=== PATIENT | male | born 1990 | race Caucasian/White ===

== ENCOUNTER 2017-03-21 10:00 | Inpatient (IN) | payer OTHER ==
--- NOTE | ~2017-03-21 | HP ---
Unit #: [id number] #: [id number] Patient: QUINTEN PATINO [id number] [place] [address] [id number] MR#: [id number] NAME: QUINTEN PATINO ROOM: P209 Age: 27 Sex: M Admission Date: 03/21/2017 : 1990 Attending Physician: Jose A Ryan M.D. Admitting Physician: Jose A Ryan M.D. Primary Care Physician: Primary Care Physician No HISTORY AND PHYSICAL HISTORY OF PRESENT ILLNESS The patient is a 27-year-old male admitted to [address] [place] [address] on 03/21/2017 to withdrawal from alcohol. PAST MEDICAL HISTORY 1. Alcohol abuse 2. Nicotine dependence PAST SURGICAL HISTORY The patient denies. SOCIAL He is unemployed and lives with his girlfriend and her daughter. He smokes one pack of cigarettes daily, drinks three to five fifths of vodka per day. Smokes two to three joints per day. FAMILY MEDICAL HISTORY Noncontributory. ALLERGIES No known drug allergies. CURRENT MEDICATION The patient is not on any home medications. REVIEW OF SYSTEMS CONSTITUTIONAL: No fever or chills. HEENT: Denies any sore throat, ear pain or runny nose. CARDIOVASCULAR: Denies chest pain, irregular heart rhythm or palpitations. CHEST: Denies shortness of breath or cough. No hemoptysis. GASTROINTESTINAL: Denies nausea, vomiting, diarrhea or chronic constipation. ENDOCRINE: Denies history of increased thirst or urination. No recent significant weight loss or gain. GENITOURINARY: Denies dysuria, frequency, or hematuria. SKIN: Denies any rashes. HEMATOLOGIC: Denies history of increased bleeding or bruising. MUSCULOSKELETAL: Denies any hot, swollen joints. No generalized muscle pain. NEUROLOGIC: Denies problems with vision or speech. No frequent, severe headaches. No numbness, tingling or weakness in any extremities. Denies loss of bladder or bowel control. PHYSICAL EXAM Unit #: [id number] #: [id number] Patient: QUINTEN PATINO GENERAL: He is awake, alert and oriented in no acute distress. VITAL SIGNS: Temperature 97.0, heart rate 103, respiration 16, blood pressure 152/98. SKIN: Warm and dry without rash or lesion. HEENT: Normocephalic. TMs not viewed. Oral and nasal passages clear. Conjunctivae clear. PERRLA. EOMs intact. NECK: Supple without lymphadenopathy or thyromegaly. HEART: Regular rate and rhythm without murmur. LUNGS: Clear. ABDOMEN: Soft, nontender. : Not done. EXTREMITIES: No evidence of cyanosis, clubbing or edema. Moves all without focal deficit. NEUROLOGICAL: Grossly within normal limits. Cranial Nerves: II: Visual jones are intact. III, IV AND : Extraocular movements are intact. Pupils are equal, round and reactive to light. V: Facial sensation is grossly normal. VII: Facial movements and expression are normal. VIII: Auditory acuity grossly intact. IX, X: Uvula is midline. Phonation is normal. XI: Patient shrugs shoulders and turns head normally. XII: Tongue protrudes in the midline. Sensory and Motor Function: Sensory and motor sensation is grossly normal. Motor: moves all extremities well. IMPRESSION 1. Psychiatric admission. 2. Polysubstance abuse. 3. Nicotine dependence. RECOMMENDATIONS Psychiatric per psychiatrist. MEDICAL: No contraindication to participate in facility activities. MEDICAL PROGNOSIS Good. MEDICAL CONDITION Stable. Dictated by... Raul Sinclair/steven TD: 03/23/2017 03:30 JOB #: [id number] Unit #: [id number] #: [id number] Patient: QUINTEN PATINO HISTORY AND PHYSICAL Page 1 of 1 X SHA AKBAR APRN X HISTORY AND PHYSICAL
--- NOTE | ~2017-03-21 | DS ---
Unit #: [id number] #: [id number] Patient: QUINTEN PATINO [id number] [facility] [address] [place] [address] [id number] MR#: [id number] NAME: QUINTEN PATINO ROOM: [facility] Age: 27 Sex: M Admission Date: 03/21/2017 : 1990 Discharge Date: 03/22/2017 Attending Physician: Jose A Ryan M.D. Primary Care Physician: Primary Care Physician No DISCHARGE SUMMARY REASON FOR ADMISSION Alcohol detox. DIAGNOSTIC STUDIES LABORATORY RESULTS: None. HOSPITAL COURSE The patient was admitted to inpatient unit on 03/21/2017 and subsequently discharged on 03/22/2017. The patient requested for discharge. The patient is not suicidal, not homicidal. The patient is stable, not having any withdrawal symptom at this time. Subsequently, the patient was discharged with a plan to follow up in outpatient program. DISCHARGE MEDICATIONS None. DISCHARGE DIAGNOSES Psychiatric: Alcohol use disorder, severe, F10.20; mood disorder, not otherwise specified, F32.9. Secondary diagnosis: Deferred. Medical diagnosis: None. DISCHARGE INSTRUCTIONS The patient to follow up in outpatient clinic as per director of social work. CONDITION ON DISCHARGE The patient was pleasant and cooperative. Denied any psychotic symptom or any suicidal ideation. PROGNOSIS Guarded. DIET AND ACTIVITY As tolerated. Dictated by... Jose A Ryan M.D. SZC/phi Unit #: [id number] #: [id number] Patient: QUINTEN PATINO TD: 03/22/2017 14:09 JOB #: [id number] DISCHARGE SUMMARY Page 1 of 1 X Jose A Ryan MD X DISCHARGE SUMMARY
--- NOTE | ~2017-03-21 | PA ---
Unit #: [id number] #: [id number] Patient: QUINTEN PATINO [id number] [facility] [address] [place] [address] [id number] I MR#: [id number] NAME: QUINTEN PATINO ROOM: P209 Age: 27 Sex: M Admission Date: 03/21/2017 : 1990 Date of Assessment: Attending Physician: Jose A Ryan M.D. Admitting Physician: Jose A Ryan M.D. Primary Care Physician: Primary Care Physician No PSYCHIATRIC ASSESSMENT INFORMANTS The patient reliability, fair informant and chart reliability, good. CHIEF COMPLAINT Alcohol abuse and withdrawal. HISTORY OF PRESENT ILLNESS Mr. Quinten Patino is a 27-year-old male, admitted with the above-mentioned complaint. The patient reports that he has been dealing with alcohol addiction for a long time. The patient . Lives with girlfriend. Reported drinking daily since age 16. The patient denied any suicidal or homicidal ideation. Denied any psychotic symptom. The patient needing help with detox. Reported withdrawal symptoms such as diaphoresis, depressed mood, headache, irritability, nervousness, poor appetite, poor concentration, restlessness, and tremors. The patient reported history of blackout. No history of any IV drug abuse. No history of HIV or hepatitis. The patient reported alcohol abuse, age 16; tobacco, age 13; marijuana, age 16; and amphetamine, age 27. PAST PSYCHIATRIC HISTORY Unremarkable for any history of any previous treatment. FAMILY HISTORY AND SOCIAL HISTORY The patient has a good support system. No history of any abuse. MEDICAL HISTORY Unremarkable for any chronic medical condition. Musculoskeletal; muscle strength and tone, no atrophy or abnormal movement. Gait normal. MEDICATION HISTORY None. ALLERGIES No known drug allergies. SUBSTANCE ABUSE HISTORY Please see above. REVIEW OF SYSTEMS HEENT: Eyes, clear. Ears, nose, mouth, and throat; clear. CARDIOVASCULAR: Unremarkable. RESPIRATORY: Unremarkable. GI: Unremarkable. Unit #: [id number] #: [id number] Patient: QUINTEN PATINO : Unremarkable. SKIN: Unremarkable. LYMPH NODE: Unremarkable. NEUROLOGIC: Unremarkable. ENDOCRINE: Unremarkable. HEMATOLOGIC: Unremarkable. ALLERGIC/IMMUNOLOGIC: Unremarkable. MUSCULOSKELETAL: Muscle strength and tone, no atrophy or abnormal movement. Gait normal. MENTAL STATUS EXAMINATION CONSTITUTIONAL: Measurement of vital signs; temperature 97.0, heart rate 103, respiratory rate 16, 100% oxygen saturation, and blood pressure 132/98. Height 5 feet 11 inches and weight 139 pounds. GENERAL APPEARANCE: The patient dressed casually. The patient did not show any facial deformity. MUSCULOSKELETAL: Please see above. PSYCHIATRIC EXAMINATION Description of speech; regular rate, normal volume, normal articulation, coherent, and spontaneous. Description of thought process, goal directed. Description of association, intact. Description of abnormal psychotic thinking; the patient denied any hallucination or delusions. Description of the patient's judgment: Concerning everyday activity, poor. Social situation, poor. Concerning psychiatric condition, poor. Complete mental status examination; oriented in time, place, and person. Recent and remote memory, fair. Attention span and concentration, fair. Language, able to name object and repeat phrases. Fund of knowledge, aware of current event and passive vocabulary intact. Mood and affect, sad and dysphoric. Insight and judgment, fair to poor. ASSETS AND LIABILITIES Assets, the patient is articulate and able to take care of his ADL. Liability, substance abuse. ADMITTING DIAGNOSES Psychiatric: Alcohol use disorder, severe, F10.20 and mood disorder, not otherwise specified, F32.9. Secondary diagnosis: Deferred. Medical diagnosis: None. Stressors: Psychosocial stressors. PSYCHIATRIC PLAN AND TREATMENT GOAL AND DISCHARGE PLAN 1. Advised to admit the patient on the inpatient unit. Provide safe, supportive, and structured environment. 2. Ordered labs; CBC, CMP, UA, and UDS. 3. Detox protocol and detox monitoring. 4. The patient to attend all the programing. If needed, consider further adjustment of medication. TREATMENT GOAL To attain euthymic mood, gain insight into his problem, and learn coping skills. Unit #: [id number] #: [id number] Patient: QUINTEN PATINO DISCHARGE PLAN Plan to stabilize the patient and consider followup in outpatient program. ESTIMATED LENGTH OF STAY 2 to 5 days. Dictated by... Jose A Ryan M.D. RONAN/phi TD: 03/22/2017 14:16 JOB #: [id number] PSYCHIATRIC ASSESSMENT Page 1 of 1 X Jose A Ryan MD PSYCHIATRIC ASSESSMENT
[~2017-03-21 10:00] MED LIST: NO MEDICATIONS
[2017-03-22 11:56] LABS: BASOPHIL# 0.1 X10e3 (0-0.3); BASOPHIL% 1.2 % (0-2.5); EOSINOPHIL# 0.1 X10e3 (0-0.7); EOSINOPHIL% 2.1 % (0.0-7.0); HEMATOCRIT 43.3 % (38.0-50.0); HEMOGLOBIN 14.5 gm/dL (13.0-16.0); LYMPHOCYTE# 1.3 X10e3 (1.0-3.5); LYMPHOCYTE% 23.6 % (17.0-45.0); MEAN CELL VOLUME 98.5 FL (83-96); MEAN CORPUSCULAR HGB CONC 33.5 g/dL (30-36); MEAN PLATELET VOLUME 7.3 FL (6.5-11.5); MONOCYTE# 0.6 X10e3 (0-1.0); MONOCYTE% 10.5 % (3.0-12.0); NEUTROPHIL# 3.5 X10e3 (1.5-7.1); NEUTROPHIL% 62.6 % (40-75); PLATELET COUNT 190 X10e3 (140-420); RED CELL DISTRIBUTION WIDTH 13.6 % (11.0-15.5); WHITE BLOOD COUNT 5.5 X10e3 (4.0-10.5)
[2017-03-22 12:02] LABS: DIFF IND NO
[2017-03-22 12:19] LABS: ALBUMIN SERUM 3.9 g/dL (3.5-5.0); BILIRUBIN,TOTAL 1.3 mg/dL (0.2-2.0); BUN/CREATININE RATIO 18.33; CALCIUM SERUM 9.5 mg/dL (8.4-10.2); CREATININE SERUM 0.6 mg/dL (0.6-1.4); GLOM FILT RATE Estimated 137.8 mL/min (>60); POTASSIUM 3.7 mmol/L (3.5-5.1); PROTEIN TOTAL SERUM 7.1 g/dL (6.0-8.3)
== END 2017-03-22 12:00 | disposition home or self-care (01) | DRG 897 ==
LOC: P2S 12:08
PROVIDERS: Psychiatry & Neurology Psychiatry
PROC: HZ2ZZZZ Detoxification Services for Substance Abuse Treatment (ICD-10-PCS; principal; 2017-03-21)
DX: F11.20 Opioid dependence, uncomplicated (principal); F32.9 Major depressive disorder, single episode, unspecified; F17.210 Nicotine dependence, cigarettes, uncomplicated; F19.10 Other psychoactive substance abuse, uncomplicated
CPT/HCPCS: 80053; 85025

== ENCOUNTER 2017-04-03 08:56 | Inpatient (IN) | payer OTHER ==
--- NOTE | ~2017-04-03 | PN ---
Unit #: [id number] #: [id number] Patient: QUINTEN PATINO [id number] [facility] [address] [place] [address] [id number] MR#: [id number] NAME: QUINTEN PATINO ROOM: [facility] Age: 27 Sex: M Admission Date: 04/03/2017 : 1990 Attending Physician: Jose A Ryan M.D. Admitting Physician: Jose A Ryan M.D. Primary Care Physician: Primary Care Physician Nettie LOPEZ PROGRESS NOTES DATE OF SERVICE: 04/05/2017 DISCUSSION Mr. Erazo is a 27-year-old male, seen on 04/05/2017. The patient interviewed, chart reviewed, and obtained information from nursing staff. The patient reports making progress, still having withdrawal symptoms, anxious, and nervous. The patient's vital signs; temperature 98.5, heart rate 69, and blood pressure 134/89. REVIEW OF SYSTEMS Complete review of systems unremarkable. MENTAL STATUS EXAMINATION General appearance, the patient dressed casually. Attention span and concentration, fair. Oriented in time, place, and person. Mood and affect, sad and dysphoric. Speech, monotone. Thought process, concrete. The patient denied any thoughts of harming self or others. Recent and remote memory, poor. Insight and judgment, poor. DIAGNOSIS Alcohol use disorder, severe. ASSESSMENT AND PLAN Advised to continue with current medication and therapeutic protocol. If needed, consider further adjustment of medication. Dictated by... Lianet Cheung/phi TD: 04/05/2017 14:06 JOB #: [id number] Unit #: [id number] #: [id number] Patient: QUINTEN PATINO PEANARCISA PROGRESS NOTES Page 1 of 1 X Jose A Ryan MD PROGRESS NOTE
--- NOTE | ~2017-04-03 | DS ---
Unit #: [id number] #: [id number] Patient: QUINTEN PATINO [id number] [facility] [address] [place] [address] [id number] MR#: [id number] NAME: QUINTEN PATINO ROOM: [facility] Age: 27 Sex: M Admission Date: 04/03/2017 : 1990 Discharge Date: 04/06/2017 Attending Physician: Jose A Ryan M.D. Primary Care Physician: Primary Care Physician No DISCHARGE SUMMARY REASON FOR ADMISSION Alcohol withdrawal. DIAGNOSTIC STUDIES LABORATORY RESULTS: Remarkable for sodium 132, potassium 3.1. AST 86, ALT 129. HOSPITAL COURSE The patient was admitted to inpatient unit on 04/03/2017 and discharged on 04/06/2017. The patient was treated with detox protocol, detox monitoring, also followed by the medical doctor for abnormal labs. The patient was treated with chemical dependency group, expressive therapy, psychoeducation, and psychotherapy. The patient was responsive to treatment. Subsequently, the patient was discharged with a plan to follow up in outpatient program. DISCHARGE MEDICATIONS None. DISCHARGE DIAGNOSES Psychiatric: Alcohol use disorder, severe, F10.20; mood disorder, not otherwise specified, F32.9. Secondary diagnosis: Deferred. Medical diagnosis: None. Stressors: Psychosocial stressors. DISCHARGE INSTRUCTIONS The patient to follow up in outpatient clinic as per social media specialist. CONDITION ON DISCHARGE The patient was pleasant and cooperative. Denied any psychotic symptom or any suicidal ideation. PROGNOSIS Guarded. DIET AND ACTIVITY As tolerated. Unit #: [id number] #: [id number] Patient: QUINTEN PATINO Dictated by... Lianet Cheung/phi TD: 04/07/2017 06:59 JOB #: [id number] DISCHARGE SUMMARY Page 1 of 1 X Jose A Ryan MD X DISCHARGE SUMMARY
--- NOTE | ~2017-04-03 | PA ---
Unit #: [id number] #: [id number] Patient: QUINTEN PATINO [id number] [facility] [address] [place] [address] [id number] I MR#: [id number] NAME: QUINTEN PATINO ROOM: [facility] Age: 27 Sex: M Admission Date: 04/03/2017 : 1990 Date of Assessment: 04/04/2017 Attending Physician: Jose A Ryan M.D. Admitting Physician: Jose A Ryan M.D. Primary Care Physician: Primary Care Physician No PSYCHIATRIC ASSESSMENT INFORMANTS The patient reliability, fair informant and chart reliability, good. CHIEF COMPLAINT Alcohol detox. HISTORY OF PRESENT ILLNESS Mr. Quinten Patino is a 27-year-old male, presented with the above-mentioned complaint. The patient lives with girlfriend, presented with the alcohol addiction and wanted detox. The patient reports that he was discharged from this facility on 03/22/2017 and continued to drink daily. The patient stated that he was prescribed trazodone, but having reaction to the medication and stopped taking it. The patient reported moderate withdrawal symptoms. CIWA score 14. Blood alcohol level 0.20. Needing inpatient admission at this time for psychiatric stabilization and detox. PAST PSYCHIATRIC HISTORY Remarkable for history of previous admission on 03/21/2017. FAMILY HISTORY AND SOCIAL HISTORY The patient has good support system from girlfriend. No history of any abuse. No legal problems. MEDICAL HISTORY Unremarkable for any chronic medical condition. Musculoskeletal; muscle strength and tone, no atrophy or abnormal movement. Gait normal. MEDICATION HISTORY None. ALLERGIES No known drug allergies. SUBSTANCE ABUSE HISTORY The patient has a history of alcohol use, age of onset 16; tobacco, age of onset 13; marijuana, age of onset 16; and methamphetamine, age of onset 27. REVIEW OF SYSTEMS HEENT: Eyes, clear. Ears, nose, mouth, and throat; clear. CARDIOVASCULAR: Unremarkable. RESPIRATORY: Unremarkable. GI: Unremarkable. : Unremarkable. Unit #: [id number] #: [id number] Patient: QUINTEN PATINO SKIN: Unremarkable. LYMPH NODE: Unremarkable. NEUROLOGIC: Unremarkable. ENDOCRINE: Unremarkable. HEMATOLOGIC: Unremarkable. ALLERGIC/IMMUNOLOGIC: Unremarkable. MUSCULOSKELETAL: Muscle strength and tone, no atrophy or abnormal movement. Gait normal. MENTAL STATUS EXAMINATION CONSTITUTIONAL: Measurement of vital signs; temperature 98.0, heart rate 77, respiratory rate 18, oxygen saturation 100%, and blood pressure 132/90. Height 6 feet and weight 155 pounds. GENERAL APPEARANCE: The patient dressed casually. The patient did not show any facial deformity. MUSCULOSKELETAL: Please see above. PSYCHIATRIC EXAMINATION Description of speech, regular rate. Description of thought process, goal directed. Description of association, intact. Description of abnormal psychotic thinking; the patient denied any hallucination or delusions, but mood lability, sad, and depressed. Description of the patient's judgment: Concerning everyday activity, poor. Social situation poor. Concerning psychiatric condition, poor. Complete mental status examination; oriented in time, place, and person. Recent and remote memory, fair. Attention span and concentration, fair. Language, able to name object and repeat phrases. Fund of knowledge, aware of current event and passive vocabulary intact. Mood and affect, sad and dysphoric. Insight and judgment, fair to poor. ASSETS AND LIABILITIES Assets, the patient is articulate and able to take care of his ADL. Liability, history of alcohol abuse. ADMITTING DIAGNOSES Psychiatric: Alcohol use disorder, severe, F10.20 and mood disorder, not otherwise specified, F32.9. Secondary diagnosis: Deferred. Medical diagnosis: None. Stressors: Psychosocial stressors. PSYCHIATRIC PLAN AND TREATMENT GOAL AND DISCHARGE PLAN 1. Advised to admit the patient on the inpatient unit. Provide safe, supportive, and structured environment. 2. Ordered labs, UA and UDS. 3. Detox protocol and detox monitoring. 4. The patient to attend all the programing including group therapy, individual therapy, and chemical dependency group. TREATMENT GOAL To attain euthymic mood, gain insight into his problem, and learn coping skills. DISCHARGE PLAN Unit #: [id number] #: [id number] Patient: QUINTEN PATINO Plan to stabilize the patient and consider followup in outpatient program. ESTIMATED LENGTH OF STAY 3 to 5 days. Dictated by... Jose A Ryan M.D. RONAN/phi TD: 04/04/2017 16:36 JOB #: [id number] PSYCHIATRIC ASSESSMENT Page 1 of 1 X Jose A Ryan MD X PSYCHIATRIC ASSESSMENT
--- NOTE | ~2017-04-03 | HP ---
Unit #: [id number] #: [id number] Patient: QUINTEN PATINO [id number] [place] [address] [id number] I MR#: [id number] NAME: QUINTEN PATINO ROOM: [facility] Age: 27 Sex: M Admission Date: 04/03/2017 : 1990 Attending Physician: Jose A Ryan M.D. Admitting Physician: Jose A Ryan M.D. Primary Care Physician: Primary Care Physician No HISTORY AND PHYSICAL HISTORY OF PRESENT ILLNESS Quinten is a 27 year old admitted to [facility] because of his abuse of alcohol. PAST MEDICAL HISTORY Long history of alcohol abuse. PAST SURGICAL HISTORY Nothing reported. ALLERGIES Phenergan, Ambien. SOCIAL HISTORY Smokes 1 pack per day. Drinks a fifth of liquor on a daily basis. Denies illicit drug use. FAMILY HISTORY Medically noncontributory. REVIEW OF SYSTEMS CONSTITUTIONAL: No fever or chills. HEENT: Denies any sore throat, ear pain or runny nose. CARDIOVASCULAR: Denies chest pain, irregular heart rhythm or palpitations. CHEST: Denies shortness of breath or cough. No hemoptysis. GASTROINTESTINAL: Denies nausea, vomiting, diarrhea or chronic constipation. ENDOCRINE: Denies history of increased thirst or urination. No recent significant weight loss or gain. GENITOURINARY: Denies dysuria, frequency, or hematuria. SKIN: Denies any rashes. HEMATOLOGIC: Denies history of increased bleeding or bruising. MUSCULOSKELETAL: Denies any hot, swollen joints. No generalized muscle pain. NEUROLOGIC: Denies problems with vision or speech. No frequent, severe headaches. No numbness, tingling or weakness in any extremities. Denies loss of bladder or bowel control. CURRENT MEDICATIONS Detox protocol. PHYSICAL EXAMINATION GENERAL: Alert, well-nourished, in no apparent distress. VITAL SIGNS: Blood pressure 130/88, heart rate 90, respirations 16, Unit #: [id number] #: [id number] Patient: QUINTEN PATINO temperature 98.6. WEIGHT: 155. HEIGHT: 6 feet 0 inches. SKIN: Warm and dry without rash or lesion. HEENT: Normocephalic. TMs not viewed. Oral and nasal passages clear. Conjunctivae clear. PERRLA. EOMs intact. NECK: Supple without lymphadenopathy or thyromegaly. HEART: Regular rate and rhythm without murmur. LUNGS: Clear. ABDOMEN: Soft, nontender. : Not done. EXTREMITIES: No evidence of cyanosis, clubbing or edema. Moves all without focal deficit. NEUROLOGICAL: Grossly within normal limits. Cranial Nerves: II: Visual jones are intact. III, IV AND : Extraocular movements are intact. Pupils are equal, round and reactive to light. V: Facial sensation is grossly normal. VII: Facial movements and expression are normal. VIII: Auditory acuity grossly intact. IX, X: Uvula is midline. Phonation is normal. XI: Patient shrugs shoulders and turns head normally. XII: Tongue protrudes in the midline. Sensory and Motor Function: Sensory and motor sensation is grossly normal. Motor: moves all extremities well. Coordination: Gait is normal. Deep Tendon Reflexes: Intact. IMPRESSION Psychiatric admission. RECOMMENDATIONS PSYCHIATRIC: Per psychiatrist. MEDICAL: See no contraindication to participate in facility's activities. MEDICAL PROGNOSIS Good. MEDICAL CONDITION Stable. Dictated by... Deana Sampson P.A.-C. for Lianet Darling/michael TD: 04/03/2017 21:48 JOB #: [id number] Unit #: [id number] #: [id number] Patient: QUINTEN PATINO HISTORY AND PHYSICAL Page 1 of 1 X Deana Sampson HISTORY AND PHYSICAL
[2017-04-04 11:50] LABS: BASOPHIL# 0.1 X10e3 (0-0.3); EOSINOPHIL# 0.1 X10e3 (0-0.7); EOSINOPHIL% 2.6 % (0.0-7.0); HEMATOCRIT 44.3 % (38.0-50.0); HEMOGLOBIN 15.2 gm/dL (13.0-16.0); LYMPHOCYTE# 0.8 X10e3 (1.0-3.5); LYMPHOCYTE% 15.1 % (17.0-45.0); MEAN CELL VOLUME 96.5 FL (83-96); MEAN CORPUSCULAR HGB CONC 34.2 g/dL (30-36); MEAN PLATELET VOLUME 8.1 FL (6.5-11.5); MONOCYTE# 0.6 X10e3 (0-1.0); MONOCYTE% 10.5 % (3.0-12.0); NEUTROPHIL# 3.8 X10e3 (1.5-7.1); NEUTROPHIL% 70.8 % (40-75); RED BLOOD COUNT 4.59 X10e (3.90-5.60); WHITE BLOOD COUNT 5.3 X10e3 (4.0-10.5)
[2017-04-04 12:05] LABS: ALBUMIN SERUM 3.9 g/dL (3.5-5.0); BILIRUBIN,TOTAL 1.1 mg/dL (0.2-2.0); CALCIUM SERUM 9.2 mg/dL (8.4-10.2); CREATININE SERUM 0.6 mg/dL (0.6-1.4); GLOM FILT RATE Estimated 137.8 mL/min (>60); POTASSIUM 3.1 mmol/L (3.5-5.1); PROTEIN TOTAL SERUM 7.3 g/dL (6.0-8.3)
[2017-04-04 12:31] LABS: DIFF IND YES; PLATELET COUNT 91 X10e3 (140-420)
[2017-04-04 12:41] LABS: PLATELET ESTIMATE DECREASED (NORMAL); VACUOLIZATION SL
[2017-04-04 12:42] LABS: RBC NORMAL YES
== END 2017-04-06 10:40 | disposition home or self-care (01) | DRG 897 ==
LOC: POF 08:56 → P1E 10:24
PROVIDERS: Psychiatry & Neurology Psychiatry
PROC: HZ2ZZZZ Detoxification Services for Substance Abuse Treatment (ICD-10-PCS; principal; 2017-04-04)
DX: F10.20 Alcohol dependence, uncomplicated (principal); F39 Unspecified mood [affective] disorder; F17.210 Nicotine dependence, cigarettes, uncomplicated
CPT/HCPCS: 80053; 85025; 86592

== ENCOUNTER 2017-05-03 06:52 | Emergency (ER) | payer OTHER ==
[~2017-05-03] VITALS: Ht 180.3 cm; Wt 62.1 kg
--- NOTE | ~2017-05-03 | CR63 ---
[facility] A Service of [facility] RADIOLOGY TEXT RESULTS PATIENT: QUINTEN PATINO LOCATION: [facility] : [birth year] UNIT #: [id number] AGE: [address]: Devin Henderson MD SEX: M ORDER DR: [id number] [facility] [address] [place], [place] [address] [id number] MR#: [id number] Acc #: [id number] NAME: QUINTEN PATINO : 1990 SEX: M STUDY DATE/TIME: 05/03/2017 9:20 UNIT: [facility] ROOM: STUDY DESCRIPTION: CR Chest 2 View Attending Physician: Devin Henderson M.D. Ordering Physician: [facility] MEDICAL IMAGING REPORT This report is preliminary unless electronic signature is present EXAM 2 views of the chest COMPARISON April 30, 2011. HISTORY 27-year-old male with dyspnea and cough for 1 day. FINDINGS Cardiomediastinal silhouette is within normal limits. No evidence of pneumothorax, pleural effusion or acute airspace disease. IMPRESSION Normal exam. Dictated by... Prabhu Stoner M.D. THIS IS AN ELECTRONICALLY VERIFIED REPORT Prabhu Stoner M.D. at 05/10/2017 4:43 PM BLM/pcl TD: 05/03/2017 14:26 JOB #: [id number] MEDICAL IMAGING REPORT Page 1 of 1 COPY
[2017-05-03 09:26] LABS: BASOPHIL# 0.1 X10e3 (0-0.3); BASOPHIL% 1.3 % (0-2.5); EOSINOPHIL% 0.5 % (0.0-7.0); HEMATOCRIT 45.7 % (38.0-50.0); HEMOGLOBIN 15.5 gm/dL (13.0-16.0); LYMPHOCYTE# 1.1 X10e3 (1.0-3.5); LYMPHOCYTE% 17.9 % (17.0-45.0); MEAN CELL VOLUME 97.8 FL (83-96); MEAN CORPUSCULAR HEMOGLOBIN 33.3 PG (28-34); MEAN PLATELET VOLUME 7.1 FL (6.5-11.5); MONOCYTE# 0.6 X10e3 (0-1.0); MONOCYTE% 10.7 % (3.0-12.0); NEUTROPHIL# 4.1 X10e3 (1.5-7.1); NEUTROPHIL% 69.6 % (40-75); RED BLOOD COUNT 4.67 X10e (3.90-5.60); RED CELL DISTRIBUTION WIDTH 14.2 % (11.0-15.5); WHITE BLOOD COUNT 5.9 X10e3 (4.0-10.5)
[2017-05-03 09:54] LABS: ACETAMINOPHEN <10 ug/mL; ALBUMIN SERUM 4.1 g/dL (3.5-5.0); ALKALINE PHOSPHATASE 99 U/L (32-92); ALT (SGPT) 195 U/L (10-40); AST (SGOT) 313 U/L (10-42); BILIRUBIN, DIRECT 0.5 mg/dL (0.0-0.2); BILIRUBIN,INDIRECT 0.8 mg/dL (0.0-0.9); BILIRUBIN,TOTAL 1.3 mg/dL (0.2-2.0); BLOOD UREA NITROGEN 6 mg/dL (9-23); CALCIUM SERUM 8.5 mg/dL (8.4-10.2); CARBON DIOXIDE 27 mmol/L (22-31); CHLORIDE 99 mmol/L (100-111); CREATININE SERUM 0.5 mg/dL (0.6-1.4); GLOM FILT RATE Estimated 148.6 mL/min (>60); GLUCOSE FASTING 79 mg/dL (70-110); LIPASE 72 U/L (22-51); PROTEIN TOTAL SERUM 7.7 g/dL (6.0-8.3); SALICYLATE <4.0 mg/dL; SODIUM 138 mmol/L (135-145)
[2017-05-03 09:56] LABS: ALCOHOL BLOOD 325 mg/dL ([, 0])
[2017-05-03 10:09] LABS: DIFF IND YES; PLATELET COUNT 55 X10e3 (140-420)
[2017-05-03 10:15] LABS: PLATELET ESTIMATE DECREASED (NORMAL)
[2017-05-03 10:17] LABS: RBC NORMAL YES
[2017-05-03 10:34] LABS: URINE SOURCE CLEAN CATCH
[2017-05-03 10:44] LABS: URINE APPEARANCE TURBID; URINE BLOOD TRACE (NEG); URINE COLOR DK YELLOW; URINE GLUCOSE NEG (NEG); URINE KETONE 2+ (NEG); URINE LEUKOCYTE ESTERASE TRACE (NEG); URINE NITRATE NEG (NEG); URINE PROTEIN 1+ (NEG); URINE SPECIFIC GRAVITY 1.022 (1.003-1.035)
[2017-05-03 10:47] LABS: URINE BACTERIA AUWI NEG (NEGATIVE); URINE SQUAMOUS EPITHELIAL CELL NONE SEEN /[HPF]; UWBCS1 AUWI 0-2 (0-5)
[2017-05-03 10:51] LABS: CULTURE INDICATED? NO; URINE BILIRUBIN NEG (NEG)
[2017-05-03 11:13] LABS: AMPHETAMINE NEG (NEG); BARBITURATES NEG (NEG); BENZODIAZEPINES POS (NEG); COCAINE NEG (NEG); MARIJUANA NEG (NEG); OPIATES NEG (NEG); TRICYCLIC ANTIDEPRESSANTS NEG (NEG); U METHADONE NEG (NEG)
[2017-05-03 18:32] LABS: POC - CKMB <1.0 ng/mL (0.0-7.9); POC - TROPONIN <0.05 ng/mL (<=0.05)
== END 2017-05-03 15:47 | disposition home or self-care (01) ==
LOC: CED 06:52
PROVIDERS: Emergency Medicine; Nurse Practitioner
DX: F10.129 Alcohol abuse with intoxication, unspecified (principal); E87.6 Hypokalemia; R94.5 Abnormal results of liver function studies; F17.200 Nicotine dependence, unspecified, uncomplicated; Z88.8 Allergy status to other drugs, medicaments and biological substances
CPT/HCPCS: 36415; 71020; 80048; 80076; 80307; 81003; 82553; 83690; 84484; 85025; 96361; 96374; 96375; 99284; G0480; J2060; J2405